=== PATIENT | female | born 1990 | race Caucasian/White ===

== ENCOUNTER 2019-09-30 10:22 | Outpatient (RCR) | payer OTHER, SELFPAY ==
[2019-09-30 10:27] VITALS: BMI 28.8
== END 2019-12-29 23:59 | disposition home or self-care (01) ==
LOC: ANHDMC 10:22
PROVIDERS: Visit Provider Obstetrics & Gynecology
DX: O24.410 Gestational diabetes mellitus in pregnancy, diet controlled (principal); Z3A.30 30 weeks gestation of pregnancy; Z71.3 Dietary counseling and surveillance; Z71.89 Other specified counseling
CPT/HCPCS: 97802; G0108

== ENCOUNTER 2019-11-12 11:24 | Outpatient (CLI) | payer OTHER, SELFPAY ==
[2019-11-12] MEDS: BETAMETHASONE SOD PHOS/ACETATE 30 MG/5 ML VIAL 12 MG IM (11:53)
--- NOTE | 2019-11-12 11:53 | PM.IMHP ---
H&P: HPI History of Present Illness Chief complaint: injection Narrative: Saritha Gilliam is a 29 year old female 2 para 1 whose last menstrual period was the 2019 EDC is 12/06/2019 presents at 36 and half weeks gestation for repeat section. has been complicated by a suspected trisomy 21 but she refused amniocentesis. She has had decreased movement and fluid has decreased and minus findings she is offered early section risks and benefits reviewed Review of Systems Review of Systems: All systems reviewed & are unremarkable except as noted in HPI and below PMFSH Social History Social History Spiritual care concerns: No Meds Home Medications and Allergies Allergies Allergy/AdvReac Type Severity Reaction Status Date / Time latex Allergy Mild RASH Verified 06/24/15 14:52 Exam Const: General: no acute distress Eyes: General: appearance normal, both eyes and all related structures Neck: Neck: supple and no JVD Thyroid: thyroid normal Resp: Effort & Inspection: normal respiratory effort Auscultation: clear to auscultation bilaterally Cardio: Rate: regular rate Rhythm: regular rhythm GI: Inspection: normal to inspection ( gravid soft uterus) : General: Yes bladder normal to palpation External Female Exam: normal external appearance Speculum Exam - Vagina: normal vaginal discharge and No vaginal bleeding Speculum Exam - Cervix: nontender Bimanual exam- vagina & uterus: bladder normal to palpation and No Cervical tenderness present OB/external & speculum: No vaginal bleeding Skin: General skin exam: no rashes or lesions noted Extrem: General: normal to inspection and no edema Psych: Mental Status: mental status grossly normal Affect: normal affect Assessment and Plan Additional Plan impression: 36 and half week with decreased growth and suspected trisomy 21 Plan: Repeat low-transverse section
== END 2019-11-12 11:25 | disposition home or self-care (01) ==
LOC: ANHOBOP 11:40
PROVIDERS: Visit Provider Obstetrics & Gynecology
DX: Z36.89 Encounter for other specified antenatal screening (principal)
CPT/HCPCS: 96372; J0702

== ENCOUNTER 2019-11-12 12:08 | Outpatient (CLI) | payer OTHER, SELFPAY ==
[2019-11-12 12:40] LABS: Hematocrit 32.5 % (37.0-47.0); Hemoglobin 10.8 g/dL (12.0-15.0); Mean Corpuscular HGB Conc 33.2 g/dl (32-36); Mean Corpuscular Hemoglobin 29.5 pg (26-34); Mean Corpuscular Volume 88.8 fl (80-100); Platelet Count Result 252 k/mm3 (150-375); Red Blood Count 3.66 M/mm3 (4.2-5.4); White Blood Count 16.9 K/mm3 (4.5-10.0)
[2019-11-13 07:09] LABS: Rapid Plasma Reagin Non-Reactive (NonReactive)
== END 2019-11-12 12:09 | disposition home or self-care (01) ==
PROVIDERS: Visit Provider Obstetrics & Gynecology
DX: Z01.818 Encounter for other preprocedural examination (principal)
CPT/HCPCS: 36415; 85027; 86592; 86850; 86900; 86901

== ENCOUNTER 2019-11-13 09:41 | Inpatient (IN) | payer OTHER, SELFPAY ==
--- NOTE | 2019-11-12 11:57 | HP_ITS ---
This report was moved to the correct visit, [id number] on 11/18/2019. Original report was signed by Dr. Bruna Philip on 11/12/2019 at 1157. H&P: HPI History of Present Illness Chief complaint: injection Narrative: Saritha Gilliam is a 29 year old female 2 para 1 whose last menstrual period was the 2019 EDC is 12/06/2019 presents at 36 and half weeks gestation for repeat section. has been complicated by a suspected trisomy 21 but she refused amniocentesis. She has had decreased movement and fluid has decreased and minus findings she is offered early section risks and benefits reviewed Review of Systems Review of Systems: All systems reviewed & are unremarkable except as noted in HPI and below PMFSH Social History Social History Spiritual care concerns: No Meds Home Medications and Allergies Allergies Allergy/AdvReac Type Severity Reaction Status Date / Time latex Allergy Mild RASH Verified 06/24/15 14:52 Exam Const: General: no acute distress Eyes: General: appearance normal, both eyes and all related structures Neck: Neck: supple and no JVD Thyroid: thyroid normal Resp: Effort & Inspection: normal respiratory effort Auscultation: clear to auscultation bilaterally Cardio: Rate: regular rate Rhythm: regular rhythm GI: Inspection: normal to inspection ( gravid soft uterus) : General: Yes bladder normal to palpation External Female Exam: normal external appearance Speculum Exam - Vagina: normal vaginal discharge and No vaginal bleeding Speculum Exam - Cervix: nontender Bimanual exam- vagina & uterus: bladder normal to palpation and No Cervical tenderness present OB/external & speculum: No vaginal bleeding Skin: General skin exam: no rashes or lesions noted Extrem: General: normal to inspection and no edema Psych: Mental Status: mental status grossly normal Affect: normal affect Assessment and Plan Additional Plan impression: 36 and half week with decreased growth and suspected trisomy 21 Plan: Repeat low-transverse section Report Initialized date/time: Brandon Hutton MD 11/12/19 / 1157 Electronically signed by: Brandon Hutton MD 11/12/[address] [facility]
[2019-11-13] VITALS (57 sets, daily range): BP systolic 86–128; BP diastolic 51–88; PULSE 60–124; RESP 16–18; TEMP 36.2–37; O2SAT 89–100; BMI 26.6
--- NOTE | 2019-11-13 04:07 | WPDHPUPDATE1 ---
History and Physical Update Update Date/Time: 11/13/19 04:07 History and Physical has been reviewed, including an updated exam of the patient. There are NO changes in the patient's condition. Risks, benefits, and alternatives have been discussed and questions answered. Patient agrees to proceed with procedure.
--- NOTE | 2019-11-13 10:31 | LDADM ---
This patient, Saritha Gilliam, was admitted to Labor/Delivery/Recovery 119 on 11/13/19 at 09:41. Plans for labor, pain management and were discussed with patient. Patient/family oriented to hospital policies and general routines including ID bracelet, bed and alarms, visiting hours, pain management, procedures, bathroom and other care routines, personal items, smoking policy, room service/diet and guest tray routines, infant security routines, and visiting hours. Patient/Family are encouraged to report perceived risks to care and to ask questions if they do not understand what they are told or what they should do. See OBIX for further documentation.
[2019-11-13] MEDS: LACTATED RINGERS 1,000 ML 125 ML IV CONT (10:41)
--- NOTE | 2019-11-13 10:41 | WPDANESEPPF ---
Anes - Initial Pre Proc Eval Procedure: Operation Date: 11/13/19 12:00 Proposed Procedures p Repeat Section - Brandon Harry MD Date/Time: 11/13/19 10:41 Surgeon: Brandon Harry MD Pre Op Diagnosis: Prior Patient Data Age: 29 Gender: F Height: 5 ft 1 in Weight: 64 kg Last Vital Signs Pulse 86 11/13/19 10:31 BP 96/73 L 11/13/19 10:31 Allergies Allergy/AdvReac Type Severity Reaction Status Date / Time latex Allergy Mild RASH Verified 06/24/15 14:52 Home Medications Medication Instructions Recorded Confirmed Type hydrocodone-acetaminophen [[place]] 1 tablet PO Q4H PRN #30 tablet 11/13/19 Rx Patient hx anesthesia problems: none Family hx anesthesia problems: none PMFSH Past Medical History Medical History (Updated 11/13/19 @ 10:41 by Brandon Mcneill MD) Gestational diabetes Social History Social History Smoking status: Never smoker Substance use: never Gender identity (if verbalized by the patient): Female Spiritual care concerns: No Anes - Eval Final PreProcedure Day of Procedure 11/13/19 10:41 Patient weight: overweight Heart: regular rate and rhythm Lungs: clear to auscultation Airway: Mallampati scale class 1 Neurological: alert and oriented Last oral intake: >/= 8 hours ASA classification: II Anesthetic plan: proceed Anesthesia type and monitoring: regional spinal and standard monitoring Informed Consent: The patient's anesthetic plan and its attendant risks and benefits were discussed with the patient/family/POA. Questions were solicited and answers provided to the satisfaction of the patient/family/POA.
[2019-11-13] MEDS: ceFAZolin 2 GM/D5W 50 ML 2 GM/50 ML BAG IVPB (11:13)
--- NOTE | 2019-11-13 12:00 | PM.PROC ---
Procedure Note - Detailed Date of procedure: 11/13/19 Pre-op diagnosis: Prior Surgeon: Brandon Harry MD Postop diagnosis: Prior section/36 and half week with known Down's baby/oligohydramnios and IUGR Procedure: Repeat low-transverse section EBL: 270cc Anesthesia: Spinal Findings: 4 lb 13 oz male with an excellent cry Complications: None Description of procedure: The patient was prepped and draped in normal sterile fashion and placed in the supine position. Under excellent spinal anesthetic the abdomen was entered in a Pfannenstiel cyst incision and progressive layers to the fascia. The fascia was incised in upward outward fashion bilaterally. The underlying muscles were sharply dissected. The parietal peritoneum mm because clamped and and by sharp dissection. This was carried superiorly then inferiorly to the dome of the bladder. A bladder blade was placed. A bladder flap was formed. A bladder blade returned. A low-transverse incision made in the head delivered in the JULY position. Anterior posterior shoulder delivered spontaneously. Cord clamped x2 and cut. passed off the table with an excellent cry. Placenta delivered intact manually. The uterus was inspected and noted to be clean of any debris. It was delivered from the abdomen. The uterus was closed with continuous running locking 0 Vicryl from lateral edge lateral edge. This was followed by an imbricating layer of imbricating 0 Vicryl from lateral edge to lateral edge. Hemostasis was assured. Ovaries and tubes appeared within normal limits. The uterus returned to the abdomen. The hysterotomy incision inspected 1 last time noted be hemostatic. The laps were removed and accounted for. The fascia was then closed with continuous running 0 Vicryl from lateral edge to midline bilaterally. The subcutaneous layer closed with Monocryl and glue. Quantitative blood loss was 270cc. All sponge, needle, instrument counts were correct. Mom and baby are doing fine at the time of dictation. There were no immediate complications
[2019-11-13] MEDS: KETOROLAC 30 MG/ML VIAL (*BKC) IV PUSH (14:05)
[2019-11-13] MEDS: OXYTOCIN 30 UNITS/NS 500 ML 30 UNITS/500 ML BAG 125 UNITS IV CONT (14:05)
--- NOTE | 2019-11-13 14:32 | PC.NURSE ---
Patient transferred to post room #283 per stretcher from labor and delivery. Support person present. Oriented to unit, room, information board, rooming in, admission packet and security measures. Patient verbalizes understanding.
[2019-11-13] MEDS: DEXTROSE 5%/0.45% SOD CHL 1,000 ML 125 ML IV CONT (20:30)
[2019-11-14 00:45] VITALS: BP 113/76; PULSE 68; RESP 16; TEMP 36.6; O2SAT 99
[2019-11-14] MEDS: KETOROLAC 30 MG/ML VIAL (*BKC) IV PUSH (00:59)
[2019-11-14 04:30] VITALS: BP 108/73; PULSE 85; RESP 16; TEMP 36.9; O2SAT 99
[2019-11-14 06:02] LABS: Basophils Percent Auto 0.1 % (0.2-1.2); Hematocrit 31.2 % (37.0-47.0); Hemoglobin 10.1 g/dL (12.0-15.0); Immature Granulocyte Percent A 1.8 % (0-0.5); Lymphocytes Absolute Auto 1.72 K/mm3 (0.9-3.2); Lymphocytes Percent Auto 10.2 % (18.3-44.2); Mean Corpuscular HGB Conc 32.4 g/dl (32-36); Mean Corpuscular Hemoglobin 29.6 pg (26-34); Mean Corpuscular Volume 91.5 fl (80-100); Mean Platelet Volume 11.7 fl (7.4-10.4); Monocytes Absolute Auto 1.2 K/mm3 (0.1-0.6); Monocytes Percent Auto 7.2 % (2.6-8.5); Neutrophils Absolute Auto 13.7 K/mm3 (1.3-6.7); Neutrophils Percent Auto 80.7 % (45.5-73.1); Nucleated Red Blood Cells Absolute Auto 0.1 K/mm3 (0.0-0.012); Nucleated Red Blood Cells Perc 0.4 % (0.0-0.2); Platelet Count Result 251 k/mm3 (150-375); Red Blood Count 3.41 M/mm3 (4.2-5.4); Red Cell Distribution Width 13.2 % (11.5-14.5); White Blood Count 16.9 K/mm3 (4.5-10.0)
--- NOTE | 2019-11-14 06:51 | PM.OBPNVD ---
OB - PN: Subj Subjective Date/time seen: 11/14/19 06:51 Patient comments: no complaints and pain well controlled baby status: doing well and nursing well OB - PN: Obj Data Labs CBC & Chem 7: 11/14/19 05:00 Labs: Laboratory Results - last 24 hr 11/14/19 05:00 WBC 16.9 H RBC 3.41 L Hgb 10.1 L Hct 31.2 L MCV 91.5 MCH 29.6 MCHC 32.4 RDW 13.2 Plt Count 251 MPV 11.7 H Immature Gran % (Auto) 1.8 H Neut % (Auto) 80.7 H Lymph % (Auto) 10.2 L Richardson % (Auto) 7.2 Eos % (Auto) 0.0 Baso % (Auto) 0.1 L Lymph # (Auto) 1.72 Richardson # (Auto) 1.2 H Eos # (Auto) 0.0 Baso # (Auto) 0.0 Abs Immat Gran (auto) 0.30 H Absolute Neuts (auto) 13.7 H Absolute Nucleated RBC 0.1 H Nucleated RBC % 0.4 H OB - PN A/P Plan day: 1 Plan: routine care Time Spent With Patient Time: Total time spent is greater than 50% in coordination of care (as documented) at patient's floor/unit and/or counseling patient: Time with patient: less than 15 minutes Review of Systems Review of Systems: All systems reviewed & are unremarkable except as noted in HPI and below Exam Const: General: no acute distress Eyes: General: appearance normal, both eyes and all related structures Neck: Neck: supple and no JVD Thyroid: thyroid normal Resp: Effort & Inspection: normal respiratory effort Auscultation: clear to auscultation bilaterally Cardio: Rate: regular rate Rhythm: regular rhythm GI: Inspection: normal to inspection and incision (cdi. fundus firm) : External Female Exam: normal external appearance (flow light) Skin: General skin exam: no rashes or lesions noted Extrem: General: normal to inspection and no edema Psych: Mental Status: mental status grossly normal Affect: normal affect
[2019-11-14] MEDS: IBUPROFEN 600 MG TABLET PO ×2 (07:59→22:37)
[2019-11-14] MEDS: DOCUSATE SODIUM 100 MG CAPSULE PO ×2 (07:59→17:36)
[2019-11-14] MEDS: MULTIVIT/MIN/PREN/FOL AC/IRON TABLET 1 TAB PO (07:59)
--- NOTE | 2019-11-14 08:00 | PC.NURSE ---
Consult with pt., mother reports has been sleepy and not eagerly feeding the last few feedings. Mother has been pumping and offering EBM as available. Mother reports some difficulties with bottle feeding. Reviewed early infants of 36 weeks and Trisomy are freq. sleepy feeders and sporadic with effective feedings. Demonstrated stimulation techniques to wake for feeding. Assisted with infant to breast. Reviewed positioning/alignment in cross cradle, holding breast in C hold and guided asymmetrical latch on. Discussed rational for each. Infant made a few weak attempts and was unable to latch. Assisted with bottle feeding. Infant has an uncoordinated suck swallow, with gagging and allowing much of formula to run out. Report to primary RN and ICP.
[2019-11-14 08:05] VITALS: BP 108/71; PULSE 68; RESP 18; TEMP 37.1; O2SAT 99
--- NOTE | 2019-11-14 11:25 | WPDANLDPN2 ---
Anes-Prog Note L&D Date/Time: 11/14/19 11:25 Comfortable throughout: section Neuraxial method: epidural Epidural/Spinal procedure site: clean & non-tender Neuro status: Neuro function grossly intact. Cardiovascular status: normal Respiratory status: normal Airway patency: baseline Mental status: baseline Post-Op hydration status: normal Vital Signs: Last Vital Signs Temp 37.1 C 11/14/19 08:05 Pulse 68 11/14/19 08:05 Resp 18 11/14/19 08:05 BP 108/71 11/14/19 08:05 Pulse Ox 99 11/14/19 08:05 I/O: Intake & Output 11/13/19 11/14/19 11/14/19 23:59 07:59 15:59 Intake Total 500 Output Total 325 2000 Balance -325 -1500 Post-procedural complaints: none Patient feedback: Patient satisfied with anesthetic care.
--- NOTE | 2019-11-14 11:26 | WPDANLDNPN2 ---
Anes-Prog Note L&D-Neuraxial Date/Time: 11/14/19 11:26 Neuraxial medications: epidural PF morphine Opiod-related complaints: none Patient feedback: Patient satisfied with post-operative pain management.
--- NOTE | 2019-11-14 15:30 | PC.NURSE ---
Reviewed instructions given on breast pump care and usage, pumping schedule, nipple care, and collection and storage of breast milk. Encouraged breast massage and manual expression to stimulate supply. Assessed patient for correct flange size, placement and draw. Patient verbalizes and demonstrates understanding of instructions.
[2019-11-14 19:00] VITALS: BP 117/74; PULSE 100; RESP 16; TEMP 37; O2SAT 100
--- NOTE | 2019-11-15 06:55 | P.DS_ITS ---
DS: Diagnosis Admitting Diagnosis Admitting Diagnosis: 36 weeks/prev section/oligo/iugr/downs DS: Summary Time Spent with Patient Time attestation: Total time spent providing and/or coordinating discharge services: Exam Const: General: no acute distress Eyes: General: appearance normal, both eyes and all related structures Neck: Neck: supple and no JVD Thyroid: thyroid normal Resp: Effort & Inspection: normal respiratory effort Auscultation: clear to auscultation bilaterally Cardio: Rate: regular rate Rhythm: regular rhythm GI: Inspection: non-distended GI Palp: Yes Soft to palpation, No Tenderness to palpation present (GI) and No Guarding due to palpation present (GI) Auscultation: normal bowel sounds : General: Yes bladder normal to palpation External Female Exam: normal external appearance Speculum Exam - Vagina: normal vaginal discharge and No vaginal bleeding Speculum Exam - Cervix: nontender Bimanual exam- vagina & uterus: bladder normal to palpation and No Cervical tenderness present OB/external & speculum: No vaginal bleeding Skin: General skin exam: no rashes or lesions noted Extrem: General: normal to inspection and no edema Psych: Mental Status: mental status grossly normal Affect: normal affect DS: Data Data Completed and Pending Pending studies at discharge: Pending at discharge 11/13/19 11:35 Surgical [PTH] Routine Discharge Plan Discharge Attending physician on discharge: Brandon Harry Discharging Clinician: Brandon Harry Patient Disposition: Home, Self-Care Activity: may shower, no straining, may drive after 2 weeks and pelvic rest Diet: heart healthy Wound Care Instructions: follow printed instructions and incision open to air Follow-up/Referrals: Brandon Harry MD [Physician] - Discharge Medications: New hydrocodone-acetaminophen [[place]] 5-325 mg tablet 1 tablet PO Q4H PRN (Reason: pain) Qty: 30 RF: 0 Continued Daily [id number] mg-mcg-mg Combo Pack 1 pkg PO DAILY RF: 0 Date of admission: 11/13/19 09:41 Primary Care Provider: PHYSICIAN NOT ON STAFF,NONSTAFF Admitting Provider: Brandon Harry Attending physician on admission: Brandon Harry
--- NOTE | 2019-11-15 06:57 | PM.OBPNVD ---
OB - PN: Subj Subjective Date/time seen: 11/15/19 06:57 Patient comments: no complaints and pain well controlled OB - PN: Obj Data Labs CBC & Chem 7: 11/14/19 05:00 OB - PN A/P Plan day: 2 Plan: routine care, discharge home and follow up 6 weeks (4 weeks) Time Spent With Patient Time: Total time spent is greater than 50% in coordination of care (as documented) at patient's floor/unit and/or counseling patient: Time with patient: less than 15 minutes Review of Systems Review of Systems: All systems reviewed & are unremarkable except as noted in HPI and below Exam Const: General: no acute distress Eyes: General: appearance normal, both eyes and all related structures Neck: Neck: supple and no JVD Thyroid: thyroid normal Resp: Effort & Inspection: normal respiratory effort Auscultation: clear to auscultation bilaterally Cardio: Rate: regular rate Rhythm: regular rhythm GI: Inspection: normal to inspection and incision (cdi) Percussion: Yes normal to percussion : General: Yes bladder normal to palpation External Female Exam: normal external appearance Speculum Exam - Vagina: normal vaginal discharge and No vaginal bleeding Speculum Exam - Cervix: nontender Bimanual exam- vagina & uterus: bladder normal to palpation and No Cervical tenderness present OB/external & speculum: No vaginal bleeding Skin: General skin exam: no rashes or lesions noted Extrem: General: normal to inspection and no edema Psych: Mental Status: mental status grossly normal Affect: normal affect
[2019-11-15 07:45] VITALS: BP 125/86; PULSE 80; RESP 18; TEMP 37.1
[2019-11-15] MEDS: DOCUSATE SODIUM 100 MG CAPSULE PO (08:17)
[2019-11-15] MEDS: MULTIVIT/MIN/PREN/FOL AC/IRON TABLET 1 TAB PO (08:17)
[2019-11-15] MEDS: IBUPROFEN 600 MG TABLET PO (08:17)
== END 2019-11-15 08:42 | disposition home or self-care (01) | DRG 787 ==
LOC: ANHLDR 09:47 → ANHOB2 15:11
PROVIDERS: Admitting Provider Obstetrics & Gynecology; Visit Provider Obstetrics & Gynecology
PROC: 10D00Z1 Extraction of Products of Conception, Low, Open Approach (ICD-10-PCS; CPT 59514; principal; 2019-11-13 12:00)
DX: O34.211 Maternal care for low transverse scar from previous cesarean delivery (principal); O41.03X0 Oligohydramnios, third trimester, not applicable or unspecified; Z37.0 Single live birth; Z3A.36 36 weeks gestation of pregnancy; O36.8130 Decreased fetal movements, third trimester, not applicable or unspecified; O35.1XX0 Maternal care for (suspected) chromosomal abnormality in fetus, not applicable or unspecified
CPT/HCPCS: 36415; 81229; 85025; 88307; A9270; J0131; J0690; J1200; J1885; J2274; J2405; J2590; J7120

== ENCOUNTER 2019-11-13 09:41 | Outpatient (RCR) | payer OTHER, SELFPAY ==
[2019-10-17 11:34] VITALS: BP 110/73; PULSE 96
[2019-10-24 10:14] VITALS: BP 98/62; PULSE 116
[2019-10-31 09:53] VITALS: BP 98/62; PULSE 114
[2019-11-07 10:15] VITALS: BP 102/62; PULSE 106
[2019-11-11] MEDS: BETAMETHASONE SOD PHOS/ACETATE 30 MG/5 ML VIAL 12 MG IM (11:39)
--- NOTE | 2019-11-11 12:05 | PM.OBTRLD ---
OB - Triage/Final Diagnosis Visit Information Date of evaluation: 11/11/19 Reason for evaluation: decreased movement and other (bradycardia) Comments/Additional reasons for admission: FHT noted to be bradycardic on in office US today. BPP score was 4 in the office. pt sent to triage for evaluation, NST and steroids. FHT were noted to be in the 140s and reactive. BPP score thus improved. Plan for repeat BPP/NST tomorrow and second round of BTMS. pt given precautions on kick counts. Evaluation Variability: Moderate (11-25) monitor accelerations: Present monitor decelerations: Variable
[2019-11-11 17:42] VITALS: BP 100/66; PULSE 106
== END 2019-11-14 07:33 | disposition home or self-care (01) ==
LOC: ANHOBOP 09:41
PROVIDERS: Visit Provider Obstetrics & Gynecology
DX: O24.419 Gestational diabetes mellitus in pregnancy, unspecified control (principal); Z3A.32 32 weeks gestation of pregnancy; Z3A.33 33 weeks gestation of pregnancy; Z3A.34 34 weeks gestation of pregnancy; Z3A.35 35 weeks gestation of pregnancy; Z3A.36 36 weeks gestation of pregnancy
CPT/HCPCS: 59025; 96372; J0702

== ENCOUNTER 2025-03-19 11:23 | Outpatient (CLI) | payer OTHER, SELFPAY ==
[2025-03-19 12:29] LABS: Hematocrit 41.0 % (37.0-47.0); Hemoglobin 14.0 g/dL (12.0-15.0); Immature Granulocyte Percent A 0.4 % (0-0.5); Lymphocytes Absolute Auto 2.22 K/mm3 (0.9-3.2); Mean Corpuscular HGB Conc 34.1 g/dl (32-36); Mean Corpuscular Hemoglobin 31.3 pg (26-34); Mean Corpuscular Volume 91.7 fl (80-100); Nucleated Red Blood Cells Absolute Auto 0.000 K/mm3 (0.0-0.012); Nucleated Red Blood Cells Perc 0.0 % (0.0-0.2); Platelet Count Result 303 k/mm3 (150-375); Red Blood Count 4.47 M/mm3 (4.2-5.4); White Blood Count 7.8 K/mm3 (4.5-10.0)
== END 2025-03-19 11:24 | disposition home or self-care (01) ==
LOC: ANHSURGERY 11:27
PROVIDERS: PCP Nurse Practitioner Family; Visit Provider Obstetrics & Gynecology
DX: Z01.818 Encounter for other preprocedural examination (principal); D25.9 Leiomyoma of uterus, unspecified
CPT/HCPCS: 36415; 85025; 86850; 86900; 86901

== ENCOUNTER 2025-03-20 02:52 | Day surgery (SDC) | payer OTHER, SELFPAY ==
--- NOTE | 2025-03-17 03:35 | PM.IMHP ---
H&P: HPI History of Present Illness Date/Time: 03/17/25 03:35 Chief Complaint: Uterine fibroids Narrative: is a 34-year-old female with the symptomatic uterine fibroids. She is admitted for robotic hysterectomy bilateral salpingectomy. Risks and benefits reviewed exclusive of , aspiration pneumonia, bleeding, transfusion, perforation injury to bowel, bladder, ureters, her wrist internal organs with need for open laparotomy. She received the [employer]CO[employer] handout entitled hysterectomy as well as de Delia handout. She had all questions answered. She asked to proceed. Review of Systems Review of Systems: All systems reviewed & are unremarkable except as noted in HPI and below PMFSH Past Medical History Medical History Gestational diabetes Social History Social History Smoking status: Never smoker Substance use: never Gender identity (if verbalized by the patient): Female Spiritual care concerns: No Meds Home Medications and Allergies Home Medications ?Medication ?Instructions ?Recorded ?Confirmed ?Type hydrocodone 5 mg-acetaminophen 325 1 tablet PO Q4H PRN pain #30 tabs 11/13/19 Rx mg tablet ([facility]) vits 75-iron 28 mg-folic 1 pkg PO DAILY 11/13/19 11/13/19 History acid 800 mcg-omega3 440 mg oral pack (Daily ) Allergies Allergy/AdvReac Type Severity Reaction Status Date / Time adhesive tape AdvReac Redness of Verified 11/13/19 10:55 Skin Exam Const: General: cooperative, healthy appearing and comfortable Nutritional Appearance: average body habitus Orientation/consciousness: oriented to person, oriented to place and oriented to time Resp: Effort & Inspection: normal respiratory effort Cardio: Rate: regular rate Rhythm: regular rhythm Heart sounds: S1 normal heart sound present and S2 normal heart sound present GI: Inspection: normal to inspection : External Female Exam: normal external appearance Speculum Exam - Vagina: normal appearance of the vagina Speculum Exam - Cervix: normal appearance of the cervix Bimanual exam- vagina & uterus: enlarged and Uterine tenderness Bimanual Exam- Adnexa, other: normal adnexae Assessment and Plan Assessment and plan (1) Uterine fibroid: Code(s): D25.9 - Leiomyoma of uterus, unspecified Status: Acute Plan Proceed with robotic total vaginal hysterectomy and bilateral salpingectomy
[2025-03-17 13:25] VITALS: BMI 31.0
--- NOTE | 2025-03-17 13:34 | PC.NURSE ---
Report to the Outpatient Waiting Room, entrance under the green pavilion located off [facility], at time _1130_ on date _[id number]_. Planned Procedure Time: _130pm_.? Time changes happen often and if your time is changed the preop area will call you the afternoon before. - You and your visitor will be asked to self-screen and do not enter if you have any COVID symptoms. Please call surgeon if you need to reschedule. - A mask is optional within the hospital at this time. Patients may have clear liquids (water, carbonated beverages, clear teas, apple juice) until 3 hours prior to surgery with a maximum of 20 ounces. - No food from midnight until time of surgery and no smoking, or chewing tobacco (or any form of nicotine). No chewing gum, candy or mints. Take only the following medications with a SIP of water on the morning of surgery: __Auvelity___ DO NOT STOP ANY OF YOUR OTHER PRESCRIPTION MEDICATIONS PRIOR TO SURGERY EXCEPT THE FOLLOWING Hold all vitamins and supplements for 3 days per anesthesiologist. Stop now Medications to discontinue per physician Date to take last dose Please no make-up, nail malay, hairspray, perfume, deodorant, or body powder the day of surgery.? No jewelry (including any body piercings) or valuables the day of surgery, leave them at home.? Please take a shower or bath the night before, or the morning of, surgery with an antibacterial soap.? Wear comfortable, loose fitting clothing.? - Jewelry must be removed prior to entering the operating room.? Rings and piercings that are not removed may be cut off. - The hospital will not accept responsibility for valuables.? - Please leave all valuables, including medications, at home the day of surgery. If you are going home after surgery, a licensed tram driver must drive you home.? - NO public transportation without another adult if you receive anesthesia. - We recommend that an adult stay with you for 24 hours following discharge. - We also recommend that you do not drive, make important decision, drink alcoholic beverages, or take any drugs that were not prescribed by your health care provider for at least 24 hours after your discharge time. Follow any additional instructions given to you from your surgeon. Telephone instructions given to __Cindi___and asked if any additional questions and then verbalized understanding. Patient advised to call surgeon office or pre surgery nurse liaison [phone] if any additional questions.
[2025-03-20] VITALS (12 sets, daily range): BP systolic 79–124; BP diastolic 44–80; PULSE 80–105; RESP 12–20; TEMP 36.5–36.9; O2SAT 92–100
--- NOTE | ~2025-03-20 | XR_ITS ---
EXAMINATION: XR chest 1V portable 03/20/2025 15:26 INDICATION: Shortness of breath PROCEDURE: AP portable chest COMPARISON: No prior studies for comparison. FINDINGS: The lungs are clear. The cardiomediastinal silhouette is within normal limits. There are no pleural effusions. There is no pneumothorax suspected. IMPRESSION: 1: NO ACUTE CARDIOPULMONARY DISEASE. Reviewed, dictated and finalized at location O.
--- OUTSIDE RECORDS SUMMARY | 2025-03-20 02:55 | XMS_ITS | Encounter Summary ---
Author Organization [facility] Address [address] [place] [id number] Care Team Providers Care Charge Authorizer Name Role Phone Estella Dockery NP Primary Care Provider [phone] Lindsay Wan MD Unavailable [phone] Encounter Details Date Type Department Care Team (Late st Contact Info) Description 06/26/2023 [employer] Message Enc [facility] - [place] [address] [place] [address] Bebeto Ogden MD [address] [place] [address] Right wrist Social History Tobacco Use Types Packs/Day Years Used Date Smoking Tobacco: Never Passive Smoke Exposure: Never Smokeless Tobacco: Never Comments:Never Smoked Alcohol Use Standard Drinks/Week Comments Yes 0 (1 standard drink = 0.6 oz pur e alcohol) socially Comments No Sex and Gender Information Value Date Recorded Sex Assigned at Female 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 Legal Sex Female 7:22 PM CDT Gender Identity Female 07/22/2024 1:16 PM 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 Sexual Orientation Not on file 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 Not on file Not on file Not on file documented as of this encounter Plan of Treatment Not on file documented as of this encounter Visit Diagnoses Not on filedocumented in this encounter Additional Health Concerns Assessment Noted Time PHQ-9 Depression Total Score: 10 023 1:51 PM 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
--- OUTSIDE RECORDS SUMMARY | 2025-03-20 02:55 | XMS_ITS | Encounter Summary ---
Author Organization [facility] Address [address] [place] [address] Care Team Providers Care Computer Repair Technician Name Role Phone Estella Dockery NP Primary Care Provider + Lindsay Wan MD Unavailable [phone] Encounter Details Date Type Department Care Team (Late st Contact Info) Description 07/19/2023 Zeuss Message Enc [facility] Medical Group Family and Sports Medicine - [place] [address] [place] [address] Estella Dockery NP [address] [place] [address] Ideas Social History Tobacco Use Types Packs/Day Years Used Date Smoking Tobacco: Never Passive Smoke Exposure: Never Smokeless Tobacco: Never Comments:Never Smoked Alcohol Use Standard Drinks/Week Comments Yes 0 (1 standard drink = 0.6 oz pur e alcohol) socially Comments No Sex and Gender Information Value Date Recorded Sex Assigned at Female 08/05/2024 11:43 AM FIELD OPERATIONS MANAGER Legal Sex Female 7:22 PM CDT Gender Identity Female 07/22/2024 1:16 PM FIELD OPERATIONS MANAGER Sexual Orientation Not on file 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 Not on file Not on file documented as of this encounter Progress Notes * Estella Dockery NP - 07/20/2023 10:37 AM CST OV D OPERATIONS MANAGER documented in this encounter Plan of Treatment Not on file documented as of this encounter Visit Diagnoses Not on filedocumented in this encounter Additional Health Concerns Assessment Noted Time PHQ-9 Depression Total Score: 10 023 1:51 PM FIELD OPERATIONS MANAGER documented as of this encounter Care Teams Computer Repair Technician Relationship Specialty Start Date End Date Estella Dockery JOB SERVICE CONSULTANT [address] [place], [place] [phone] PCP - General Nurse Practitioner Family 09/17/20 Lindsay Wan MD Three [facility] [address] [place] [address] Consulting Physician ANESTHESIOLOGY PAIN MEDICINE 08/01/23 documented as of this encounter
--- OUTSIDE RECORDS SUMMARY | 2025-03-20 02:55 | XMS_ITS | Encounter Summary ---
Author Organization [facility] Address [address] [place] [address] Care Team Providers Care Mold Changer Name Role Phone Estella Dockery NP Primary Care Provider [phone] Lindsay Wan MD Unavailable [phone] Encounter Details Date Type Department Care Team (Late st Contact Info) Description 04/16/[address]VPN [address] [facility] [place] [address] [phone] Azalea Lock NP 3 [facility] [address] [place] [address] [phone] (Work) Nerve ablation Social History Tobacco Use Types Packs/Day Years Used Date Smoking Tobacco: Never Smokeless Tobacco: Never Alcohol Use Standard Drinks/Week Comments Yes 0 (1 standard drink = 0.6 oz pur e alcohol) socially Comments No Sex and Gender Information Value Date Recorded Sex Assigned at Female 08/05/2024 11:43 AM OPERATING ROOM SPECIALIST Legal Sex Female 7:22 PM CDT Gender Identity Female 07/22/2024 1:16 PM OPERATING ROOM SPECIALIST Sexual Orientation Not on file 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 Not on file Not on file documented as of this encounter Plan of Treatment Not on file documented as of this encounter Visit Diagnoses Not on filedocumented in this encounter Additional Health Concerns Assessment Noted Time PHQ-9 Depression Total Score: 10 023 1:51 PM OPERATING ROOM SPECIALIST documented as of this encounter Care Teams Mold Changer Relationship Specialty Start Date End Date Estella Dockery NP [address] [place] [address] PCP - General Nurse Practitioner Family 09/17/20 Lindsay Wan MD Three [facility] [address] [place], [place] [phone] Consulting Physician ANESTHESIOLOGY PAIN MEDICINE 08/01/23 documented as of this encounter
--- OUTSIDE RECORDS SUMMARY | 2025-03-20 02:55 | XMS_ITS | Encounter Summary ---
Author Organization [facility] Address [address] [place] [address] Care Team Providers Care Floor Mechanic Name Role Phone Estella Dockery NP Primary Care Provider [phone] Lindsay Wan MD Unavailable [phone] Reason for Referral * Surgical (Routine) - Closed Specialty Diagnoses / Procedures Referred By Contac t Referred To Contact Diagnoses Lumbar facet arthropathy Procedures Case request operating room: RADIOFREQUENCY LUMBAR [id number] Lindsay Wan MD Three [facility] [address] [place] [address] Phone: tel: fax: Referral ID Status Reason Start Date Expiration Date Visits Re quested Visits Authorized [id number] Closed 04/17/2023 04/17/2024 1 1 Encounter Details Date Type Department Care Team (Late st Contact Info) Description 04/17/2023 Prep for Procedure [facility] Interventional [facility] Management Center [address] [place], [place] [phone] [id number] Lindsay Wan MD Three [facility] [address] [place] [phone] Social History Tobacco Use Types Packs/Day Years Used Date Smoking Tobacco: Never Smokeless Tobacco: Never Alcohol Use Standard Drinks/Week Comments Yes 0 (1 standard drink = 0.6 oz pur e alcohol) socially Comments No Sex and Gender Information Value Date Recorded Sex Assigned at Female 08/05/2024 11:43 AM HORIZONTAL DRILL OPERATOR Legal Sex Female 7:22 PM CDT Gender Identity Female 07/22/2024 1:16 PM HORIZONTAL DRILL OPERATOR Sexual Orientation Not on file 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 Not on file Not on file documented as of this encounter Plan of Treatment Scheduled Orders Name Type Priority Associated Diagnoses Orde r Schedule Case request operating room: RADIOFREQUENCY LUMBAR [id number] Case Request Routine Lumbar facet arthropathy Once for 1 Occurrences starting 04/17/2023 until 04/17/2023 documented as of this encounter Visit Diagnoses Diagnosis Lumbar facet arthropathy- Primary Lumbosacral spondylosis without myelopathy documented in this encounter Additional Health Concerns Assessment Noted Time PHQ-9 Depression Total Score: 023 1:51 PM HORIZONTAL DRILL OPERATOR documented as of this encounter Care Teams Floor Mechanic Relationship Specialty Start Date End Date Estella Dockery NP [address] [place] [phone] PCP - General Nurse Practitioner Family 09/17/20 Lindsay Wan MD Three [facility] [address] [place] [address] Consulting Physician ANESTHESIOLOGY PAIN MEDICINE 08/01/23 documented as of this encounter
--- OUTSIDE RECORDS SUMMARY | 2025-03-20 02:56 | XMS_ITS | Encounter Summary ---
Author Organization [facility] Address [address] [place] [address] Care Team Providers Care Steelworker Name Role Phone Estella Dockery DIGESTER OPERATOR Primary Care Provider + Lindsay Wan MD Unavailable [phone] Encounter Details Date Type Department Care Team (Late st Contact Info) Description 02/12/2023 Collected Inc. Message Enc [facility] Medical Group Family and Sports Medicine - [place] [address] [facility] [place] [address] Estella Dockery, DIGESTER OPERATOR [address] [place] [address] Prescription Social History Tobacco Use Types Packs/Day Years Used Date Smoking Tobacco: Never Smokeless Tobacco: Never Alcohol Use Standard Drinks/Week Comments Yes 0 (1 standard drink = 0.6 oz pur e alcohol) socially Comments No Sex and Gender Information Value Date Recorded Sex Assigned at Female 08/05/2024 11:43 AM MIDDLE SCHOOL READING TEACHER Legal Sex Female 7:22 PM CDT Gender Identity Female 07/22/2024 1:16 PM MIDDLE SCHOOL READING TEACHER Sexual Orientation Not on file 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 Not on file Not on file documented as of this encounter Plan of Treatment Not on file documented as of this encounter Visit Diagnoses Not on filedocumented in this encounter Additional Health Concerns Assessment Noted Time PHQ-9 Depression Total Score: 10 023 1:51 PM MIDDLE SCHOOL READING TEACHER documented as of this encounter Care Teams Steelworker Relationship Specialty Start Date End Date Estella Dockery, DIGESTER OPERATOR [address] [place] [id number] PCP - General Nurse Practitioner Family 09/17/20 Lindsay Wan MD [address] [place] [address] Consulting Physician ANESTHESIOLOGY PAIN MEDICINE 08/01/23 documented as of this encounter
--- OUTSIDE RECORDS SUMMARY | 2025-03-20 02:56 | XMS_ITS | Clinical Summary ---
Author Organization [facility] Address [address] [place] [address] Care Team Providers Care Internet Sourcer Name Role Phone No, Physician Primary Care Provider [phone] Allergies Active Allergy Reactions Criticality Noted Date Comments Adhesive Rash Medium 04/21/2024 Medications HYDROcodone-acet aminophen (NORCO) 5-325 mg per tabletIndication s:Pain Take 1 tablet by mouth every 6 (six) hours as needed for pain 20 tablet 04/21/2024 Active Social History Tobacco Use Types Packs/Day Years Used Date Smoking Tobacco: Never Assessed Personal Safety Answer Date Recorded Have you ever been in or are you currently in a harmful physical or emotional relationship or is someone making you feel afraid or unsafe? Denies 04/21/2024 Comments No Sex and Gender Information Value Date Recorded Sex Assigned at Not on file Legal Sex Female 5:22 AM WATER CONSERVATION SPECIALIST Gender Identity Not on file Sexual Orientation Not on file Obstetrics History Last Filed Vital Signs Vital Sign Reading Time Taken Comments Blood Pressure 132/88 04/21/2024 1:35 AM CDT Pulse 90 04/21/2024 1:35 AM CDT Temperature 36.9 C (98.5 F) 04/21/2024 12:51 AM CDT Respiratory Rate 20 04/21/2024 1:35 AM CDT Oxygen Saturation 100% 04/21/2024 1:35 AM CDT Inhaled Oxygen Concentration - - Weight 70.2 kg (154 lb 12.2 oz) 024 12:51 AM CDT Height 170.2 cm (5' 7) 04/21/2024 12:5 1 AM CDT Body Mass Index 24.24 04/21/2024 12:51 AM CDT Plan of Treatment Health Maintenance Due Date Last Done Comments Cervical Cancer Screening 1988 Depression Screening 1988 Hepatitis C Screening 1988 DTaP/Tdap/Td Vaccine (6 - Tdap) 1999 01/01/1996, 01/15/1990, 01/22/1989, Additional history exists Varicella Vaccines (1 of 2 - 13+ 2-dose series) 2001 Regular Well Visit/Exam 18-64 2006 HPV Vaccines (1 - 3-dose SCDM series) 2015 Influenza Vaccine (#1) 2025 Hepatitis B Screening Completed 03/03/2002 , 10/16/2001, 08/28/2001 Pneumococcal vaccine <65 Aged Out No longer eligible based on patient's age to complete this topic Insurance [facility] Care Teams Internet Sourcer Relationship Specialty Start Date End Date No, Physician PCP - General 04/21/24
--- OUTSIDE RECORDS SUMMARY | 2025-03-20 02:56 | XMS_ITS | Encounter Summary ---
Author Organization [facility] Address [address] [place] [address] Care Team Providers Care Vb Net Developer Name Role Phone Estella Dockery NP Primary Care Provider [phone] Lindsay Wan MD Unavailable [phone] Encounter Details Date Type Department Care Team (Late st Contact Info) Description 09/23/2024 Game Blisterst Message Enc [facility] Interventional Pain Management Center [address] [place], [place] [phone] [id number] Lindsay Wan MD Three [facility] [address] [place] [address] Nerve block question Social History Tobacco Use Types Packs/Day Years Used Date Smoking Tobacco: Never Passive Smoke Exposure: Never Smokeless Tobacco: Never Comments:Never Smoked Alcohol Use Standard Drinks/Week Comments Yes 0 (1 standard drink = 0.6 oz pur e alcohol) socially PHQ-2 Answer Date Recorded Patient Health Questionnaire-2 Score 2 07/24/2023 Comments No Sex and Gender Information Value Date Recorded Sex Assigned at Female 08/05/2024 11:43 AM PERSONNEL ARBITRATOR Legal Sex Female 7:22 PM CDT Gender Identity Female 07/22/2024 1:16 PM PERSONNEL ARBITRATOR Sexual Orientation Not on file 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 Not on file Not on file documented as of this encounter Plan of Treatment Not on file documented as of this encounter Visit Diagnoses Not on filedocumented in this encounter Additional Health Concerns Assessment Noted Time PHQ-9 Depression Total Score: 10 024 9:50 AM PERSONNEL ARBITRATOR documented as of this encounter Care Teams Vb Net Developer Relationship Specialty Start Date End Date Estella Dockery NP [address] [place] [address] PCP - General Nurse Practitioner Family 09/17/20 Lindsay Wan MD Three [facility] [address] [place], [place] [phone] Consulting Physician ANESTHESIOLOGY PAIN MEDICINE 08/01/23 documented as of this encounter
--- OUTSIDE RECORDS SUMMARY | 2025-03-20 02:56 | XMS_ITS | Encounter Summary ---
Author Organization [facility] Address [address] [place] [address] Care Team Providers Care Production Scheduler Name Role Phone Estella Dockery NP Primary Care Provider [phone] Lindsay Wan MD Unavailable [phone] Encounter Details Date Type Department Care Team (Late st Contact Info) Description 09/24/2024 StubHub Message [facility] Interventional [place] [address] [id number] [employer], [facility] Provider STEROID INJECTION Social History Tobacco Use Types Packs/Day Years [...] Sex Assigned at Female 08/05/2024 11:43 AM CONSUMER ANALYST Legal Sex Female 7:22 PM CDT Gender Identity Female 07/22/2024 1:16 PM CONSUMER ANALYST Sexual Orientation Not on file 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 Not on file Not on file documented as of this encounter Plan of Treatment Not on file documented as of this encounter Visit Diagnoses Not on filedocumented in this encounter Additional Health Concerns Assessment Noted Time PHQ-9 Depression Total Score: 10 024 9:50 AM CONSUMER ANALYST documented as of this encounter Care Teams Production Scheduler Relationship Specialty Start Date End Date Estella Dockery, TRANSPORTATION SECURITY OFFICER [address] [place] [address] PCP - General Nurse Practitioner Family 09/17/20 Lindsay Wna MD [address] [place] [address] Consulting Physician ANESTHESIOLOGY PAIN MEDICINE 08/01/23 documented as of this encounter
--- OUTSIDE RECORDS SUMMARY | 2025-03-20 02:56 | XMS_ITS | Encounter Summary ---
Author Organization [facility] Address [address] [place] [address] Care Team Providers Care Chief Of Party Name Role Phone Estella Docekry HOT SAW HELPER Primary Care Provider [phone] Lindsay Wan MD Unavailable [phone] Encounter Details Date Type Department Care Team (Late st Contact Info) Description 01/03/2023 EverPresenthart Message [facility] Medical Group - [address] [phone] P[employer]stream, [facility] Provider Air Quality Message Social History Tobacco Use Types Packs/Day Years Used Date Smoking Tobacco: Never Smokeless Tobacco: Never Alcohol Use Standard Drinks/Week Comments Yes 0 (1 standard drink = 0.6 oz pur e alcohol) socially Comments No Sex and Gender Information Value Date Recorded Sex Assigned at Female 08/05/2024 11:43 AM FINANCE ADMIN Legal Sex Female 7:22 PM CDT Gender Identity Female 07/22/2024 1:16 PM FINANCE ADMIN Sexual Orientation Not on file 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 No / Unsure 12/06/2022 7:26 AM CDT documented as of this encounter Plan of Treatment Not on file documented as of this encounter Visit Diagnoses Not on filedocumented in this encounter Additional Health Concerns Assessment Noted Time PHQ-9 Depression Total Score: 10 023 1:51 PM FINANCE ADMIN documented as of this encounter Care Teams Chief Of Party Relationship Specialty Start Date End Date Estella Dockery NP [address] [place] [address] PCP - General Nurse Practitioner Family 09/17/20 Lindsay Wan MD [address] [place], [place] [phone] Consulting Physician ANESTHESIOLOGY PAIN MEDICINE 08/01/23 documented as of this encounter
--- OUTSIDE RECORDS SUMMARY | 2025-03-20 02:56 | XMS_ITS | Encounter Summary ---
Author Organization [facility] Address [address] [place] [address] Care Team Providers Care Transit Planner Name Role Phone Estella Dockery NP Primary Care Provider Lindsay Wan MD Unavailable [phone] Encounter Details Date Type Department Care Team (Late st Contact Info) Description 09/25/2024 Everspring Message [facility] Interventional [place] [address] [id number] [employer], [facility] Provider REFERRAL Social History Tobacco Use Types Packs/Day Years [...] Sex Assigned at Female 08/05/2024 11:43 AM TABLET REPAIR Legal Sex Female 7:22 PM CDT Gender Identity Female 07/22/2024 1:16 PM TABLET REPAIR Sexual Orientation Not on file 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 file Not on file documented as of this encounter Plan of Treatment Not on file documented as of this encounter Visit Diagnoses Not on filedocumented in this encounter Additional Health Concerns Assessment Noted Time PHQ-9 Depression Total Score: 10 024 9:50 AM TABLET REPAIR documented as of this encounter Care Teams Transit Planner Relationship Specialty Start Date End Date Estella Dockery, ADAPTIVE PHYSICAL EDUCATOR [address] [place] [address] PCP - General Nurse Practitioner Family 09/17/20 Lindsay Wan MD [address] [place] [address] Consulting Physician ANESTHESIOLOGY PAIN MEDICINE 08/01/23 documented as of this encounter
--- OUTSIDE RECORDS SUMMARY | 2025-03-20 02:56 | XMS_ITS | Encounter Summary ---
Author Organization [facility] Address [address] [place] [address] Care Team Providers Care Psychological Operations Name Role Phone Estella Dockery NP Primary Care Provider [phone] Lindsay Wan MD Unavailable [phone] Encounter Details Date Type Department Care Team (Late st Contact Info) Description 05/28/2024 SiftyNett Message Enc [facility] Interventional Pain Management Center [address] [place], [place] [phone] [id number] Lindsay Wan MD Three [facility] [address] [place] [address] Pain Social History Tobacco Use Types Packs/Day Years [...] Sex Assigned at Female 08/05/2024 11:43 AM FUEL CELL ENGINEER Legal Sex Female 7:22 PM CDT Gender Identity Female 07/22/2024 1:16 PM FUEL CELL ENGINEER Sexual Orientation Not on file 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 Not on file documented as of this encounter Plan of Treatment Not on file documented as of this encounter Visit Diagnoses Not on filedocumented in this encounter Additional Health Concerns Assessment Noted Time PHQ-9 Depression Total Score: 10 024 9:50 AM FUEL CELL ENGINEER documented as of this encounter Care Teams Psychological Operations Relationship Specialty Start Date End Date Estella Dockery NP [address] [place] [phone] PCP - General Nurse Practitioner Family 09/17/20 Lindsay Wan MD Three [facility] Suite [facility] [place], [place] [phone] Consulting Physician ANESTHESIOLOGY PAIN MEDICINE 08/01/23 documented as of this encounter
--- OUTSIDE RECORDS SUMMARY | 2025-03-20 02:56 | XMS_ITS | Encounter Summary ---
Author Organization [facility] Address [address] [place] [address] Care Team Providers Care Journeyman Patternmaker Name Role Phone Estella Dockery SNUFF MAKER Primary Care Provider + Lindsay Wan MD Unavailable [phone] Encounter Details Date Type Department Care Team (Late st Contact Info) Description 05/11/2022 Search123 Message Enc [facility] [place] Medical Group Family and Sports Medicine - [place] [address] [place] [address] Estella Dockery, SNUFF MAKER [address] [place] [address] Tattoo Social History Tobacco Use Types Packs/Day Years Used Date Smoking Tobacco: Never Smokeless Tobacco: Never Alcohol Use Standard Drinks/Week Comments Not Currently 0 (1 standard drink = 0.6 oz pur e alcohol) socially Comments No Sex and Gender Information Value Date Recorded Sex Assigned at Female 08/05/2024 11:43 AM FUNERAL HOME GENERAL MANAGER Legal Sex Female 7:22 PM CDT Gender Identity Female 07/22/2024 1:16 PM FUNERAL HOME GENERAL MANAGER Sexual Orientation Not on file COVID-19 Exposure Response Date Recorded In the last 10 days, have yo u been in contact with someone who was confirmed or suspected to have Coronavirus/COVID-19? No / Unsure 04/27/2022 8:47 AM CDT documented as of this encounter Plan of Treatment Not on file documented as of this encounter Visit Diagnoses Not on filedocumented in this encounter Additional Health Concerns Assessment Noted Time PHQ-9 Depression Total Score: 5 04/27/20 22 9:18 AM CDT documented as of this encounter Care Teams Journeyman Patternmaker Relationship Specialty Start Date End Date Estella Dockery NP [address] [place] [phone] PCP - General Nurse Practitioner Family 09/17/20 Lindsay Wan MD Three [facility] [address] [place] [address] Consulting Physician ANESTHESIOLOGY PAIN MEDICINE 08/01/23 documented as of this encounter
--- OUTSIDE RECORDS SUMMARY | 2025-03-20 02:56 | XMS_ITS | Encounter Summary ---
Author Organization [facility] Address [address] [place] [address] Care Team Providers Care Environmental Services Coordinator Name Role Phone Estella Dockery VEST BASTER Primary Care Provider [phone] Lindsay Wan MD Unavailable [phone] Encounter Details Date Type Department Care Team (Late st Contact Info) Description 07/25/2022 MobileIron Message Enc [facility] Medical Group Family and Sports Medicine - [place] [address] [place] [address] Estella Dockery, VEST BASTER [address] [place] [address] Question regarding MRI LUMB SPINE WO CON Social History Tobacco Use Types Packs/Day Years Used Date Smoking Tobacco: Never Smokeless Tobacco: Never Alcohol Use Standard Drinks/Week Comments Yes 0 (1 standard drink = 0.6 oz pur e alcohol) socially Comments No Sex and Gender Information Value Date Recorded Sex Assigned at Female 08/05/2024 11:43 AM DITCHER OPERATOR Legal Sex Female 7:22 PM CDT Gender Identity Female 07/22/2024 1:16 PM DITCHER OPERATOR Sexual Orientation Not on file COVID-19 Exposure Response Date Recorded In the last 10 days, have yo u been in contact with someone who was confirmed or suspected to have Coronavirus/COVID-19? No / Unsure 07/22/2022 8:03 AM DITCHER OPERATOR documented as of this encounter Plan of Treatment Not on file documented as of this encounter Visit Diagnoses Not on filedocumented in this encounter Additional Health Concerns Assessment Noted Time PHQ-9 Depression Total Score: 10 023 1:51 PM DITCHER OPERATOR documented as of this encounter Care Teams Environmental Services Coordinator Relationship Specialty Start Date End Date Estella Dockery NP [address] [place] [phone] PCP - General Nurse Practitioner Family 09/17/20 Lindsay Wan MD [address] [place] [address] Consulting Physician ANESTHESIOLOGY PAIN MEDICINE 08/01/23 documented as of this encounter
--- OUTSIDE RECORDS SUMMARY | 2025-03-20 02:56 | XMS_ITS | Encounter Summary ---
Author Organization [facility] Address [address] [place] [address] Care Team Providers Care Branch Employment Coordinator Name Role Phone Estella Dockery NP Primary Care Provider [phone] Lindsay Wan MD Unavailable [phone] Encounter Details Date Type Department Care Team (Late st Contact Info) Description 09/25/[address] [facility] [place] [address] [id number] [employer], [facility] Provider REFERRAL Social History Tobacco Use Types [...] Sex Assigned at Female 08/05/2024 11:43 AM PATTERN PERFORATING MACHINE OPERATOR Legal Sex Female 7:22 PM CDT Gender Identity Female 07/22/2024 1:16 PM PATTERN PERFORATING MACHINE OPERATOR Sexual Orientation Not on file 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 Not on file documented as of this encounter Plan of Treatment Not on file documented as of this encounter Visit Diagnoses Not on filedocumented in this encounter Additional Health Concerns Assessment Noted Time PHQ-9 Depression Total Score: 10 024 9:50 AM PATTERN PERFORATING MACHINE OPERATOR documented as of this encounter Care Teams Branch Employment Coordinator Relationship Specialty Start Date End Date Estella Dockery, MANAGER MAINTENANCE [address] [place] [address] PCP - General Nurse Practitioner Family 09/17/20 Lindsay Wan MD [address] [place] [address] Consulting Physician ANESTHESIOLOGY PAIN MEDICINE 08/01/23 documented as of this encounter
--- OUTSIDE RECORDS SUMMARY | 2025-03-20 02:56 | XMS_ITS | Encounter Summary ---
Author Organization [facility] Address [address] [place] [address] Care Team Providers Care First Mate Name Role Phone Estella Dockery NP Primary Care Provider + Lindsay Wan MD Unavailable [phone] Encounter Details Date Type Department Care Team (Late st Contact Info) Description 01/26/2022 Science Exchange Message Enc [facility] Medical Group Family and Sports Medicine - [place] [address] [place] [address] Estella Dockery, STARCH DUMPER [address] [place] [address] Sun burn Social History Tobacco Use Types Packs/Day Years Used Date Smoking Tobacco: Never Smokeless Tobacco: Never Alcohol Use Standard Drinks/Week Comments Not Currently 0 (1 standard drink = 0.6 oz pur e alcohol) socially Comments No Sex and Gender Information Value Date Recorded Sex Assigned at Female 08/05/2024 11:43 AM BEEHIVE KILN CHARCOAL BURNER Legal Sex Female 7:22 PM CDT Gender Identity Female 07/22/2024 1:16 PM BEEHIVE KILN CHARCOAL BURNER Sexual Orientation Not on file documented as of this encounter Progress Notes * Estella Dockery NP - 01/30/2022 1:14 PM CDT Send her silvadene documented in this encounter Plan of Treatment Not on file documented as of this encounter Visit Diagnoses Not on filedocumented in this encounter Additional Health Concerns Assessment Noted Time PHQ-9 Depression Total Score: 3 02/26/20 21 9:41 AM CDT documented as of this encounter Care Teams First Mate Relationship Specialty Start Date End Date Estella Dockery NP [address] [place] [address] PCP - General Nurse Practitioner Family 09/17/20 Lindsay Wan MD [address] [facility] [address] [facility] [place] [address] Consulting Physician ANESTHESIOLOGY PAIN MEDICINE 08/01/23 documented as of this encounter
--- OUTSIDE RECORDS SUMMARY | 2025-03-20 02:56 | XMS_ITS | Encounter Summary ---
Author Organization [facility] Address [address] [place] [address] Care Team Providers Care Cellar Supervisor Name Role Phone Estella Dockery NP Primary Care Provider [phone] Lindsay Wan MD Unavailable [phone] Encounter Details Date Type Department Care Team (Late st Contact Info) Description 06/30/2024 web care [employer] Message [facility] Interventional [place] [address] [id number] [employer], [facility] Provider Pain Social History Tobacco Use Types Packs/Day [...] Sex Assigned at Female 08/05/2024 11:43 AM STRIPPING MACHINE OPERATOR Legal Sex Female 7:22 PM CDT Gender Identity Female 07/22/2024 1:16 PM STRIPPING MACHINE OPERATOR Sexual Orientation Not on file 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 Not on file Not on file documented as of this encounter Plan of Treatment Not on file documented as of this encounter Visit Diagnoses Not on filedocumented in this encounter Additional Health Concerns Assessment Noted Time PHQ-9 Depression Total Score: 10 024 9:50 AM STRIPPING MACHINE OPERATOR documented as of this encounter Care Teams Cellar Supervisor Relationship Specialty Start Date End Date Estella Dockery, TEXTILE MACHINE MAINTENANCE MECHANIC [address] [place] [address] PCP - General Nurse Practitioner Family 09/17/20 Lindsay Wan MD [address] [place] [address] Consulting Physician ANESTHESIOLOGY PAIN MEDICINE 08/01/23 documented as of this encounter
--- OUTSIDE RECORDS SUMMARY | 2025-03-20 02:56 | XMS_ITS | Encounter Summary ---
Author Organization [facility] Address [address] [place] [address] Care Team Providers Care Dean Of Boys Name Role Phone Estella Dockery DIRECTOR OF REAL ESTATE Primary Care Provider + Lindsay Wan MD Unavailable [phone] Encounter Details Date Type Department Care Team (Late st Contact Info) Description 12/08/2024 MiniTime Message Enc [facility] Medical Group Family and Sports Medicine - [place] [address] [place] [address] Estella Dockery, DIRECTOR OF REAL ESTATE [address] [place] [address] Low b12 Social History Tobacco Use Types Packs/Day Years Used Date Smoking Tobacco: Never Passive Smoke Exposure: Never Smokeless Tobacco: Never Comments:Never Smoked Alcohol Use Standard Drinks/Week Comments Yes 0 (1 standard drink = 0.6 oz pur e alcohol) socially PHQ-2 Answer Date Recorded Patient Health Questionnaire-2 Score 2 11/07/2024 Comments No Sex and Gender Information Value Date Recorded Sex Assigned at Female 08/05/2024 11:43 AM DIRECT CARE COUNSELOR Legal Sex Female 7:22 PM CDT Gender Identity Female 07/22/2024 1:16 PM DIRECT CARE COUNSELOR Sexual Orientation Not on file 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 Not on file Not on file documented as of this encounter Plan of Treatment Not on file documented as of this encounter Visit Diagnoses Not on filedocumented in this encounter Additional Health Concerns Assessment Noted Time PHQ-9 Depression Total Score: 6 11/08/19 25 3:19 PM CDT documented as of this encounter Care Teams Dean Of Boys Relationship Specialty Start Date End Date Estella Dockery NP [address] [place] [address] PCP - General Nurse Practitioner Family 09/17/20 Lindsay Wan MD Three [facility] [address] [place], [place] [id number] Consulting Physician ANESTHESIOLOGY PAIN MEDICINE 08/01/23 documented as of this encounter
--- OUTSIDE RECORDS SUMMARY | 2025-03-20 02:56 | XMS_ITS | Encounter Summary ---
Author Organization [facility] Address [address] [place] [address] Care Team Providers Care Sound Technician Supervisor Name Role Phone Estella Dockery NP Primary Care Provider [phone] Lindsay Wan MD Unavailable [phone] Encounter Details Date Type Department Care Team (Late st Contact Info) Description 08/16/2022 Better Beant Message Enc [facility] Medical Group Multispecialty Care - [facility] [address] [facility], [address] [place] [address] Jessica Duran APRN [address] [facility] [address] [place] [address] Back pain Social History Tobacco Use Types Packs/Day Years Used Date Smoking Tobacco: Never Smokeless Tobacco: Never Alcohol Use Standard Drinks/Week Comments Yes 0 (1 standard drink = 0.6 oz pur e alcohol) socially Comments No Sex and Gender Information Value Date Recorded Sex Assigned at Female 08/05/2024 11:43 AM PATIENT FINANCIAL COUNSELOR Legal Sex Female 7:22 PM CDT Gender Identity Female 07/22/2024 1:16 PM PATIENT FINANCIAL COUNSELOR Sexual Orientation Not on file COVID-19 Exposure Response Date Recorded In the last 10 days, have yo u been in contact with someone who was confirmed or suspected to have Coronavirus/COVID-19? Yes 08/18/2022 8:29 AM PATIENT FINANCIAL COUNSELOR documented as of this encounter Plan of Treatment Not on file documented as of this encounter Visit Diagnoses Not on filedocumented in this encounter Additional Health Concerns Assessment Noted Time PHQ-9 Depression Total Score: 10 023 1:51 PM PATIENT FINANCIAL COUNSELOR documented as of this encounter Care Teams Sound Technician Supervisor Relationship Specialty Start Date End Date Estella Dockery NP [address] [place] [phone] PCP - General Nurse Practitioner Family 09/17/20 Lindsay Wan MD Three [facility] [address] [place] [address] Consulting Physician ANESTHESIOLOGY PAIN MEDICINE 08/01/23 documented as of this encounter
--- OUTSIDE RECORDS SUMMARY | 2025-03-20 02:56 | XMS_ITS | Clinical Summary ---
Author Organization [facility] Address [address] [place] [address] Care Team Providers Care Commercial Escrow Assistant Name Role Phone Estella Dockery NP Primary Care Provider [phone] Lindsay Wan MD Unavailable [phone] Allergies Active Allergy Reactions Criticality Noted Date Comments Tape Rash Low 09/08/2021 Medications cetirizine 10 MG tablet Take 1 tablet (10 mg total) by mouth daily. Active traMADol (ULTRAM) 50 MG tabletIndications: Chronic Pain Take 1 tablet (50 mg total) by mouth every 6 (six) hours as needed for Pain. Indications: Chronic Pain 30 tablet 5 Active gabapentin (NEURONTIN) 300 MG capsuleIndications :Polyneuropathy Take 1 capsule (300 mg total) by mouth 4 (four) times daily. One tablet po qhs x 3 days then increase to bid for 3 days then increase to tid 120 capsule 11 5 12/06/19 26 Active HYDROcodone-acetam inophen (NORCO) 5-325 MG tabletIndications: Chronic Pain Take 1 tablet by mouth every 8 (eight) hours as needed for Pain. Indications: Chronic Pain 30 tablet 5 Active brexpiprazole (REXULTI) 0.5 MG tabletIndications: Depression with anxiety Take 1 tablet (0.5 mg total) by mouth daily. 30 tablet 1 5 Active AUVELITY 45-105 MG Tab CRIndications:Depr ession with anxiety, depression TAKE 1 TABLET BY MOUTH TWICE A DAY 60 tablet 5 Active celecoxib (CELEBREX) 100 MG capsuleIndications :Facet arthropathy, lumbar,Lumbar radiculopathy TAKE 2 CAPSULES (200 MG TOTAL) BY MOUTH DAILY FOR 30 DAYS. 60 capsule 1 5 03/04/20 25 Active Problems Problem Noted Date Diagnosed Date Depression with anxiety 11/07/2024 Lumbar radiculopathy 08/05/2024 Radial styloid tenosynovitis 07/25/2023 Facet arthropathy, lumbar 01/24/2023 depression 01/22/2020 Anxiety 09/12/2017 Mitral valve prolapse 04/14/2016 Resolved Problems Problem Noted Date Diagnosed Date Resolved Date Gestational diabetes mellitu s (GDM), antepartum, gestational diabetes method of control unspecified ([facility]) 11/04/2019 09/17/2020 Encounters Date Type Department Care Team Description 02/13/2025 MyChart Message Enc [facility] [address] [place] [address] Estella Dockery NP Antibiotics 01/07/2025 2:15 PM CDT Office Visit [facility] Physical Therapy [address] [place] [address] Dimple Babin, Deshawn Montesinos, PT Back Pain 01/07/2025 Travel 01/05/2025 8:45 AM CDT Office Visit [facility] Physical Therapy [address] [place] [address] Dimple Babin, Jessy Glez, PT Back Pain 01/05/[address] [facility] [address] [place] [address] Estella Dockery NP Mri result 01/05/2025 Travel 01/02/2025 Results Follow-Up [facility] Multispecialty Care - [facility] [address] [facility], [address] [place] [address] Cameron Hassan MD MRI PEL WWO CON 12/31/2024 11:30 AM CDT Office Visit [facility] Physical Therapy [address] [place] [address] Dimple Babin, Fany Torrez, PT Back Pain 12/31/2024 Travel 12/24/2024 5:15 PM CDT Office Visit [facility] Physical Therapy [address] [place] [address] Dimple Babin, APPAREL STOCK CHECKER Jessy Escobar, PT Initial Evaluation 12/24/2024 Travel 12/23/2024 8:16 AM CDT - 12/23/2024 11:59 PM CDT Hospital Encounter [facility] MRI [address] [place] [address] Dimple Babin, JEFFREY Discharge Disposition: Home or Self Care (Routine Discharge) 12/23/2024 Travel from Last 3 Months Immunizations Immunization Administration Dates Next Due Tdap (Adacel) 11/04/2019 Family History * Patient is adopted Medical History Relation Comments None Father None Mother Relation Status Comments Father Mother Social History Tobacco Use Types Packs/Day Years Used Date Smoking Tobacco: Never Passive Smoke Exposure: Never Smokeless Tobacco: Never Tobacco Cessation:Counseling Given: Not Answered Comments:Never Smoked Alcohol Use Standard Drinks/Week Comments Yes 0 (1 standard drink = 0.6 oz pur e alcohol) socially PHQ-2 Answer Date Recorded Patient Health Questionnaire-2 Score 2 11/07/2024 Comments No Sex and Gender Information Value Date Recorded Sex Assigned at Female 08/05/2024 11:43 AM INSTRUCTIONAL RESOURCE TEACHER Legal Sex Female 7:22 PM CDT Gender Identity Female 07/22/2024 1:16 PM INSTRUCTIONAL RESOURCE TEACHER Sexual Orientation Not on file 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 Not on file Not on file Last Filed Vital Signs Vital Sign Reading Time Taken Comments Blood Pressure 118/87 12/05/2024 8:04 AM CDT Pulse 100 12/05/2024 8:04 AM CDT Temperature 36.8 C (98.2 F) 12/05/2024 8:04 AM CDT Respiratory Rate 18 11/07/2024 1:16 PM CDT Oxygen Saturation 98% 12/05/2024 8:04 AM CDT Inhaled Oxygen Concentration - - Weight 72 kg (158 lb 12.8 oz) 12/05/2024 8:04 AM CDT Height 154.9 cm (5' 1) 12/05/2024 8:04 AM CDT Body Mass Index 30 12/05/2024 8:04 AM CDT Plan of Treatment Health Maintenance Due Date Last Done Comments Cervical Cancer Screening Pap Smear (Age 30 to 64) Every 3 Years 1988 Hepatitis B Vaccines (1 of 3 - 19+ 3-dose series) 2007 Pneumococcal Vaccine: Pediatrics (0 to 5 Years) and At-Risk Patients (6 to 49 Years) (1 of 2 - PCV) 2007 HPV Vaccines (1 - 3-dose SCDM series) 2015 Cervical Cancer Screening Pap with HPV Testing (Age 30 to 64) Every 5 Years 2018 Cervical Cancer Screening with HPV 2018 COVID-19 Vaccine ( season) 2025 Annual Physical 11/07/2025 11/07/2024, 11/2022, 09/17/2020, Additional history exists DTaP, Tdap and Td Vaccines (2 - Td or Tdap) 11/03/2029 11/04/2019 Hepatitis C Completed 07/09/2019 PHQ-2 (Physician [place]) Completed 11/07/2024 Meningococcal B Vaccine Aged Out No l onger eligible based on patient's age to complete this topic Meningococcal Vaccine Aged Out No margarita jason eligible based on patient's age to complete this topic RSV Immunizations Under 20 Months Aged Out No longer eligible based on patient's age to complete this topic Procedures Procedure Name Priority Date/Time Associated Diagnosis Comments MRI PEL WWO CON Routine 12/23/2024 9:27 AM CDT Lumbosacral plexopathy from Last 3 Months Results * MRI PEL WWO CON (12/23/2024 9:27 AM CDT) Anatomical Region Laterality Modality Pelvis Magnetic Resonan ce 01/01/2025 3:42 PM CDT Impressions 01/01/2025 3:49 PM CDT =====IMPRESSION:===== IMPRESSION: 1. No abnormalities identified involving the lumbosacral plexus. 2. Small uterine fibroid. Ordered By: DIMPLE BABIN Interpreted By: Tino Rodas MD, 01/01/2025 3:42 PM Narrative 01/01/2025 3:49 PM CDT [place] [address] EXAMINATION: MRI pelvis with and without contrast EXAM DATE/TIME: 12/23/2024 8:34 AM REASON FOR EXAM: 34 female. Lumbosacral plexopathy. Shooting burning pain across low back and hips leg weakness . COMPARISON: Reference MRI lumbar spine 04/05/2024 TECHNIQUE: Multiplanar multisequence MR imaging of the pelvis performed before and following IV administration of 14 mL Dotarem contrast. FINDINGS: Nonenlarged anteverted uterus. Endometrial endometrial stripe within normal limits. 1.5 cm anterior uterine fundal small enhancing fibroid. Both adnexa, ovaries are normal. Minimal trace free fluid in the cul-de-sac presumably physiologic. Images through the lumbar spine are normal. There is no significant disc degeneration, herniation, spinal or foraminal stenosis within study limits similar to the dedicated MRI lumbar spine study referenced above. Imaged lumbosacral plexus roots, trunks division cords and branches appear normal. Bilateral sciatic nerves are normal. No pelvic mass seen. Imaged bony structures the pelvis demonstrate normal marrow signal. No focal findings. Bilateral sacroiliac joints are unremarkable. Procedure Note Tino Rodas MD - 01/01/2025 [place] [id number] EXAMINATION: MRI pelvis with and without contrast EXAM DATE/TIME: 12/23/2024 8:34 AM REASON FOR EXAM: 34 female. Lumbosacral plexopathy. Shooting burning painacross low back and hips leg weakness . COMPARISON: Reference MRI lumbar spine 04/05/2024 TECHNIQUE: Multiplanar multisequence MR imaging of the pelvis performedbefore and following IV administration of 14 mL Dotarem contrast. FINDINGS: Nonenlarged anteverted uterus. Endometrial endometrial stripe withinnormal limits. 1.5 cm anterior uterine fundal small enhancing fibroid. Both adnexa, ovaries are normal. Minimal trace free fluid in [id number] presumably physiologic. Images through the lumbar spine are normal. There is no significant discdegeneration, herniation, spinal or foraminal stenosis within study limitssimilar to the dedicated MRI lumbar spine study referenced above. Imaged lumbosacral plexus roots, trunks division cords and branches appearnormal. Bilateral sciatic nerves are normal. No pelvic mass seen. Imaged bony structures the pelvis demonstrate normal marrow signal. Nofocal findings. Bilateral sacroiliac joints are unremarkable. =====IMPRESSION:===== IMPRESSION: 1. No abnormalities identified involving the lumbosacral plexus. 2. Small uterine fibroid. Ordered By: DIMPLE BABIN Interpreted By: Tino Rodas MD, 01/01/2025 3:42 PM Dimple Babin APPAREL STOCK CHECKER MRI Final Result from Last 3 Months Insurance Care Teams Commercial Escrow Assistant Relationship Specialty Start Date End Date Estella Dockery NP [address] [place] [address] [phone] PCP - General Nurse Practitioner Family 09/17/20 Lindsay Wan MD Three [facility] [address] [place] [address] Consulting Physician ANESTHESIOLOGY PAIN MEDICINE 08/01/23
--- OUTSIDE RECORDS SUMMARY | 2025-03-20 02:56 | XMS_ITS | Encounter Summary ---
Author Organization [facility] Address [address] [place] [address] Care Team Providers Care Staff Sonographer Name Role Phone Estella Dockery NP Primary Care Provider [phone] Lindsay Wan MD Unavailable [phone] Encounter Details Date Type Department Care Team (Late st Contact Info) Description 06/26/2024 RareCyte Message Enc [facility] Interventional Pain Management Center [place], [place] [phone] [id number] Lindsay Wan MD Three [facility] [address] [place] [address] Pain Social History Tobacco Use [...] Sex Assigned at Female 08/05/2024 11:43 AM RAIL SWITCHMAN Legal Sex Female 7:22 PM CDT Gender Identity Female 07/22/2024 1:16 PM RAIL SWITCHMAN Sexual Orientation Not on file 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 Not on file Not on file documented as of this encounter Plan of Treatment Not on file documented as of this encounter Visit Diagnoses Not on filedocumented in this encounter Additional Health Concerns Assessment Noted Time PHQ-9 Depression Total Score: 10 024 9:50 AM RAIL SWITCHMAN documented as of this encounter Care Teams Staff Sonographer Relationship Specialty Start Date End Date Estella Dockery NP [address] [place] [phone] PCP - General Nurse Practitioner Family 09/17/20 Lindsay Wan MD Three [facility] Suite [facility] [place], [place] [id number] Consulting Physician ANESTHESIOLOGY PAIN MEDICINE 08/01/23 documented as of this encounter
--- OUTSIDE RECORDS SUMMARY | 2025-03-20 02:56 | XMS_ITS | Encounter Summary ---
Author Organization [facility] Address [address] [place] [address] Care Team Providers Care Oyster Shipper Name Role Phone Estella Dockery CORRECTIONAL MEDICINE PHYSICIAN Primary Care Provider + Lindsay Wan MD Unavailable [phone] Encounter Details Date Type Department Care Team (Late st Contact Info) Description 06/10/2024 Mobile Factory Message Enc [facility] Medical Group Family and Sports Medicine - [place] [address] [place] [address] Estella Dockery, CORRECTIONAL MEDICINE PHYSICIAN [address] [place] [address] Mom in need Social History Tobacco Use Types Packs/Day Years [...] Sex Assigned at Female 08/05/2024 11:43 AM PACKAGING SALES REPRESENTATIVE Legal Sex Female 7:22 PM CDT Gender Identity Female 07/22/2024 1:16 PM PACKAGING SALES REPRESENTATIVE Sexual Orientation Not on file 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 file Not on file documented as of this encounter Plan of Treatment Not on file documented as of this encounter Visit Diagnoses Not on filedocumented in this encounter Additional Health Concerns Assessment Noted Time PHQ-9 Depression Total Score: 10 024 9:50 AM PACKAGING SALES REPRESENTATIVE documented as of this encounter Care Teams Oyster Shipper Relationship Specialty Start Date End Date Estella Dockery NP [address] [place] [address] PCP - General Nurse Practitioner Family 09/17/20 Lindsay Wan MD Three [facility] [address] [place], [place] [id number] Consulting Physician ANESTHESIOLOGY PAIN MEDICINE 08/01/23 documented as of this encounter
--- OUTSIDE RECORDS SUMMARY | 2025-03-20 02:56 | XMS_ITS | Encounter Summary ---
Author Organization [facility] Address [address] [place] [id number] Care Team Providers Care Manager Labor Delivery Name Role Phone Estella Dockery SQL ETL DEVELOPER Primary Care Provider + Lindsay Wan MD Unavailable [phone] Encounter Details Date Type Department Care Team (Late st Contact Info) Description 08/16/2022 [employer] Message Enc [facility] Family and Sports Medicine - [place] [address] [place] [address] Estella Dockery, SQL ETL DEVELOPER [address] [place] [address] Back pain question Social History Tobacco Use Types Packs/Day Years Used Date Smoking Tobacco: Never Smokeless Tobacco: Never Alcohol Use Standard Drinks/Week Comments Yes 0 (1 standard drink = 0.6 oz pur e alcohol) socially Comments No Sex and Gender Information Value Date Recorded Sex Assigned at Female 08/05/2024 11:43 AM CABLE ARMORER OPERATOR Legal Sex Female 7:22 PM CDT Gender Identity Female 07/22/2024 1:16 PM CABLE ARMORER OPERATOR Sexual Orientation Not on file COVID-19 Exposure Response Date Recorded In the last 10 days, have yo u been in contact with someone who was confirmed or suspected to have Coronavirus/COVID-19? Yes 08/18/2022 8:29 AM CABLE ARMORER OPERATOR documented as of this encounter Plan of Treatment Not on file documented as of this encounter Visit Diagnoses Not on filedocumented in this encounter Additional Health Concerns Assessment Noted Time PHQ-9 Depression Total Score: 10 023 1:51 PM CABLE ARMORER OPERATOR documented as of this encounter Care Teams Manager Labor Delivery Relationship Specialty Start Date End Date Estella Dockery NP [address] [place] [address] PCP - General Nurse Practitioner Family 09/17/20 Lindsay Wan MD [facility] [address] [place], [place] [id number] Consulting Physician ANESTHESIOLOGY PAIN MEDICINE 08/01/23 documented as of this encounter
--- NOTE | 2025-03-20 06:31 | WPDHPUPDATE1 ---
History and Physical Update Update Date/Time: 03/20/25 06:31 History and Physical has been reviewed, including an updated exam of the patient. There are NO changes in the patient's condition. Risks, benefits, and alternatives have been discussed and questions answered. Patient agrees to proceed with procedure.
--- NOTE | 2025-03-20 11:22 | P.PNAN_ITS ---
Anes - Initial Pre Proc Eval Procedure: Operation Date: 03/20/25 13:30 Proposed Procedures p Robotic Assisted Total Vaginal Hysterectomy with Bilateral Salpingectomy - Brandon Philip MD Date/Time: 03/20/25 11:22 Surgeon: Brandon Philip MD Pre Op Diagnosis: excess heavy bleeding, pelvic pain,fibroids,dyspar Patient Data Age: 34 Gender: F Height: 1.55 m Weight: 74.5 kg Allergies Allergy/AdvReac Type Severity Reaction Status Date / Time adhesive tape AdvReac Redness of Verified 03/17/25 13:22 Skin Home Medications ?Medication ?Instructions ?Recorded ?Confirmed ?Type hydrocodone 5 mg-acetaminophen 325 1 tablet PO Q4H PRN pain #30 tabs 11/13/19 0 03/17/25 Rx mg tablet ([place]) celecoxib 100 mg capsule 100 mg PO Q12H 03/17/2503/09 History cetirizine 10 mg tablet (24Hour 10 mg PO DAILY 5 03/17/25 History Allergy) cyanocobalamin (vitamin B-12) 1,000 mcg PO DAILY 03/1703/17/25 History 1,000 mcg tablet (Vitamin B-12) dextromethorphan IR 45 1 tablet PO BID 03/17/2504/02 History mg-bupropion ER 105 mg biphasic tablet (Auvelity) hydrocodone 5 mg-acetaminophen 325 1 tablet PO Q4H PRN pain #20 tabs 03/20/25 Rx mg tablet Patient hx anesthesia problems: none Family hx anesthesia problems: none Results Review: All pre-operative results and documents have been reviewed as part of the pre- operative evaluation. [facility] Past Medical History Medical History (Updated 03/20/25 @ 11:22 by Luciano Roldan DO) Uterine fibroid MVP (mitral valve prolapse) Gestational diabetes Social History Social History Smoking status: Never smoker Alcohol intake: current Substance use: never Living arrangements: with family Gender identity (if verbalized by the patient): Female Spiritual care concerns: No Anes - Eval Final PreProcedure Day of Procedure 03/20/25 11:22 Patient weight: obese Heart: regular rate and rhythm Lungs: clear to auscultation Airway: Mallampati scale class II Neurological: alert and oriented Last oral intake: >/= 8 hours ASA classification: II Emergent: no Anesthetic plan: proceed Anesthesia type and monitoring: general ETT and standard monitoring Results Review: All pre-operative results and documents have been reviewed as part of the pre- operative evaluation. Informed Consent: The patient's anesthetic plan and its attendant risks and benefits were discussed with the patient/family/POA. Questions were solicited and answers provided to the satisfaction of the patient/family/POA.
[2025-03-20] MEDS: LACTATED RINGERS 1,000 ML 30 ML IV CONT ×2 (12:00→13:59)
[2025-03-20] MEDS: KETOROLAC 15 MG/ML VIAL (*BKC) IV PUSH (12:00)
[2025-03-20] MEDS: ceFAZolin 2 GM in SODIUM CHLORIDE 0.9% IV 50 ML 100 ML IVPB (12:20)
[2025-03-20] MEDS: SCOPOLAMINE 1 MG PATCH 1 PATCH TRANSDERM (12:24)
[2025-03-20] MEDS: ACETAMINOPHEN 500 MG TABLET 1000 MG PO ×3 (12:24→23:00)
--- NOTE | 2025-03-20 13:20 | S_PTH ---
PATIENT: Saritha Gilliam LOC: [facility] U#:[id number] AGE/SX: 34/F ROOM: RE03/20/[address]: Brandon Philip MD : 1990 BED: DIS: 03/21/2025 SPEC #: [id number] RECD: 03/20/25 14:19 STATUS: RE REQ #: [id number] PAOLO: 03/20/25 13:[address]: Brandon Hutton DEPT: [facility] Surgical RECD BY: Prachi Corea ENTERED: 03/20/25 14:19 SP TYPE: Surgical OTHR DR: Estella Dockery, SQL REPORT DEVELOPER Tissues: A - Uterus Procedures: Hematoxylin and Eosin Stain Gross and Microscopic Level 5
--- NOTE | 2025-03-20 13:43 | P.OP_ITS ---
Procedure Note - Detailed Date of Procedure 03/20/25 Pre-op Diagnosis excess heavy bleeding, pelvic pain,fibroids,dyspar Post-op Diagnosis Same Procedure Performed Robotic total vaginal hysterectomy bilateral salpingectomy Surgeon Brandon Philip MD Anesthesia General Indications 34-year-old female with enlarged uterus with successive heavy bleeding pain Findings Uterus enlarged/tubes within limits/small left ovarian cyst was drained follicular fluid. Description of Procedure The patient was prepped draped in the normal sterile fashion placed in the dorsal lithotomy position. Under excellent general trach anesthesia weighted speculum placed in posterior fornix vagina. Anterior lip of cervix grasped with single-tooth tenaculum. Uterus sounded to 10cm. Serial dilatation with fragmented dilators performed followed by passage of the 10. JEB and the 2. 0.5 cold cup. Next the 16 Bhutanese catheter was placed in the bladder. The single- tooth and the weighted speculum removed. The gloves were changed. A supraumbilical incision made the Veress needle passed in the abdomen. Abdomen filled with CO2 gas [id number]. The 8mm trocar advanced in the abdomen. Downside visualized no injury seen. Patient placed in Trendelenburg left and right lateral quadrant incision made. 8mm trocars advanced under direct visualization assuring no injury. Right upper quadrant incision made the 8mm trocar advanced under direct visualization assuring no injury. The robot was docked. Attention was turned to the console. The left round ligament was grasped, burned, cut. Anterior bladder flap was formed by sharply dissecting the peritoneum and tissue. The uterus was noted to have the bladder writing somewhat high so this was down layer by layer until it was completely clear and then pushed caudally away from the cervix uterus the opposite round ligament which was clamped, burned, cut. Next the left fallopian tube was skeletonized away from the cyst left ovary. This was sharply dissected and left attached to its uterine origin. In similar fashion the right fallopian tube was sharply dissected away from the ovarian complex and left at its uterine origin. Next the left utero-ovarian ligament was skeletonized to conserve the left ovary clamped, burned, cut and brought to the level of previously cut round ligament. In similar fashion conserving the ovary on the right. The utero-ovarian ligament was clamped, burned, cut and brought to level of previously cut round ligament. Next cardinal broad ligaments were serially clamped burned and cut hugging the cervix uterus until the uterine vessels could be seen on the left these were individually clamped, burned, cut. These were noted be large and tortuous. In similar fashion on the right the cardinal broad ligaments were serially skeletonized clamping burning cutting and bringing this down the lateral edge until the large uterine vessels were seen on the right these were individually clamped, burned, cut. Blanching the uterus was noted a colpotomy incision made. Cervix uterus and tubes removed through the vagina. The vagina then closed with continuous running 0V lock from lateral edge to lateral edge back to the midline. Irrigation undertaken and Finley term placed over raw surface areas blood loss estimated 25cc. The robot was undocked. The gas removed from the abdomen. The incisions closed with 4 Monocryl and glue. The patient went recovery in satisfactory condition. All sponge, needle, instrument counts were correct. There were no immediate complications noted Estimated Blood Loss 25 Drains No Packing No Pathology Yes Complications No immediate complications Condition Stable Disposition PACU
--- NOTE | 2025-03-20 13:48 | PM.DS ---
DS: Admitting Diagnosis Discharge Date 03/21/2025 Admitting Diagnosis Uterine fibroid DS: Discharge Diagnosis Discharge Diagnosis (1) Uterine fibroid: Code(s): D25.9 - Leiomyoma of uterus, unspecified Status: Acute DS: Summary Hospital Course Reason for hospitalization: Patient was admitted on 03/20/2025 for robotic total vaginal hysterectomy and bilateral salpingectomy Hospital Course: Paste hospital course unremarkable. She remained afebrile. She was up, voiding without difficulty, eating regular diet, ambulating, and generally without complaints. Time Spent with Patient Time attestation: Total time spent providing and/or coordinating discharge services: Exam Const: General: cooperative, healthy appearing and comfortable Nutritional Appearance: average body habitus Orientation/consciousness: oriented to person, oriented to place and oriented to time HENMT: Head: normal to inspection Resp: Effort & Inspection: normal respiratory effort Cardio: Rate: regular rate Rhythm: regular rhythm Heart sounds: S1 normal heart sound present and S2 normal heart sound present GI: Inspection: normal to inspection and incision (Wounds are clean dry and intact) DS: Data Data Completed and Pending Pending studies at discharge: Pending at discharge 03/20/25 13:20 Surgical [PTH] Routine Discharge Plan Discharge Patient Disposition: Home Patient Language: [place] Islander Stand Alone Forms: General Discharge Instructions Follow-up/Referrals: Brandon Hutton MD [Physician, ACUPUNCTURE PHYSICIAN] Discharge Medications: New hydrocodone-acetaminophen 5-325 mg tablet 1 tablet PO Q4H PRN (Reason: pain) Qty: 20 0RF No Action hydrocodone-acetaminophen [Chase] 5-325 mg tablet 1 tablet PO Q4H PRN (Reason: pain) Qty: 30 0RF Auvelity 45-105 mg tablet, IR and ER, biphasic 1 tablet PO BID Rx Instructions: administer at least 8 hours apart cetirizine [24Hour Allergy] 10 mg tablet 10 mg PO DAILY celecoxib 100 mg capsule 100 mg PO Q12H cyanocobalamin (vitamin B-12) [Vitamin B-12] 1,000 mcg tablet 1,000 mcg PO DAILY
[2025-03-20] MEDS: ALBUTEROL SULFATE NEB 2.5 MG/3 ML INH INHALATION (14:30)
[2025-03-20] MEDS: fentaNYL CITRATE INJ (*CRX) 100 MCG/2 ML VIAL 25 MCG IV PUSH (15:10)
[2025-03-20] MEDS: DOCUSATE SODIUM 100 MG CAPSULE PO (16:12)
[2025-03-20] MEDS: SIMETHICONE 80 MG TAB.CHEW PO (16:12)
[2025-03-20] MEDS: KETOROLAC 30 MG/ML VIAL (*BKC) IV PUSH ×2 (16:12→23:00)
[2025-03-20] MEDS: DEXTROSE 5%/LACTATED RINGERS 1,000 ML 125 ML IV CONT (16:19)
[2025-03-21 04:13] VITALS: BP 91/57; PULSE 92; RESP 16; TEMP 36.5; O2SAT 96
[2025-03-21] MEDS: ACETAMINOPHEN 500 MG TABLET 1000 MG PO (04:15)
[2025-03-21] MEDS: KETOROLAC 30 MG/ML VIAL (*BKC) IV PUSH (04:15)
[2025-03-21 05:09] LABS: Hematocrit 36.3 % (37.0-47.0); Hemoglobin 12.2 g/dL (12.0-15.0); Immature Granulocyte Percent A 0.6 % (0-0.5); Lymphocytes Absolute Auto 1.09 K/mm3 (0.9-3.2); Mean Corpuscular HGB Conc 33.6 g/dl (32-36); Mean Corpuscular Hemoglobin 31.7 pg (26-34); Mean Corpuscular Volume 94.3 fl (80-100); Nucleated Red Blood Cells Absolute Auto 0.000 K/mm3 (0.0-0.012); Nucleated Red Blood Cells Perc 0.0 % (0.0-0.2); Platelet Count Result 299 k/mm3 (150-375); Red Blood Count 3.85 M/mm3 (4.2-5.4); White Blood Count 17.1 K/mm3 (4.5-10.0)
--- NOTE | 2025-03-21 07:07 | P.PNOB_ITS ---
REAL TIME ANALYST - A/P Assessment and plan (1) Uterine fibroid: Code(s): D25.9 - Leiomyoma of uterus, unspecified Status: Acute Plan home Postoperative Procedures: Procedures Operation Date: 03/20/25 13:30 Actual Procedure Side Surgeon p Robotic Assisted Total Vaginal Hysterectomy with Bilateral Salpingectomy, Destruction of Left Ovarian Cyst Bilateral Brandon Philip MD Time Spent With Patient Time: Total time spent is greater than 50% in coordination of care (as documented) at patient's floor/unit and/or counseling patient: Time with patient: less than 15 minutes REAL TIME ANALYST- PN:Subj Post-Op Subjective Date/time seen: 03/21/25 07:07 Subjective: patient reports feeling better, patient has no complaints, patient desires discharge, pain is well controlled and patient is tolerating oral intake Review of Systems 2 Review of Systems: All systems reviewed & are unremarkable except as noted in HPI and below Exam 2 Const: General: cooperative, healthy appearing and comfortable Nutritional Appearance: average body habitus Orientation/consciousness: oriented to person, oriented to place and oriented to time HENMT: Head: normal to inspection Resp: Effort & Inspection: normal respiratory effort Cardio: Rate: regular rate Rhythm: regular rhythm Heart sounds: S1 normal heart sound present and S2 normal heart sound present GI: Inspection: normal to inspection and incision (Wounds are clean dry and intact) REAL TIME ANALYST - PN: Obj Data Vital Signs Vital Signs: Vital Signs - 24 hr 03/20/25 12:00 03/20/25 13:59 03/20/25 14:15 Temperature 98.3 F 98.4 F Pulse Rate 94 80 95 Respiratory Rate 16 14 18 Blood Pressure 124/77 79/44 L 94/62 L Pulse Oximetry 99 96 97 Oxygen Delivery Room Air Simple Face Mask Simple Face Mask Oxygen Flow Rate 8 8 03/20/25 14:30 03/20/25 14:45 03/20/25 14:45 Temperature Pulse Rate 99 96 88 Respiratory Rate 12 16 20 Blood Pressure 97/59 L 95/63 L Pulse Oximetry 92 100 Oxygen Delivery Nasal Cannula Nasal Cannula Oxygen Flow Rate 6 2 03/20/25 14:55 03/20/25 15:00 03/20/25 15:15 Temperature Pulse Rate 90 95 97 Respiratory Rate 18 16 14 Blood Pressure 109/80 106/72 Pulse Oximetry 97 92 Oxygen Delivery Nasal Cannula Nasal Cannula Oxygen Flow Rate 2 2 03/20/25 15:30 09/12/25 15:50 03/20/25 15:50 Temperature 98.1 F 98.1 F Pulse Rate 100 80 80 Respiratory Rate 16 16 16 Blood Pressure 103/70 104/69 104/69 Pulse Oximetry 97 97 97 Oxygen Delivery Nasal Cannula Oxygen Flow Rate 4 03/20/25 19:10 03/20/25 19:10 03/20/25 23:11 Temperature 97.7 F 97.8 F Pulse Rate 105 H 93 Respiratory Rate 20 20 Blood Pressure 101/66 91/59 L Pulse Oximetry 96 95 Oxygen Delivery Room Air Oxygen Flow Rate 03/20/25 23:11 03/21/25 04:13 03/21/25 04:13 Temperature 97.7 F Pulse Rate 92 Respiratory Rate 16 Blood Pressure 91/57 L Pulse Oximetry 96 Oxygen Delivery Room Air Room Air Oxygen Flow Rate Intake/Output Intake/Output: Intake & Output 03/18/25 03/19/25 03/20/25 03/21/25 23:59 23:59 23:59 23:59 Intake Total 750 Output Total 1390 500 Balance -640 -500 Meds/Results Medications: Active Medications Generic Name Dose Route Start Last Admin Trade Name Freq PRN Reason Stop Dose Admin Acetaminophen 1,000 mg 03/20/25 18:00 03/21/25 04:15 Acetaminophen 500 Mg Tablet PO 1,000 mg Q6HR LUISA Administration Docusate Sodium 100 mg 03/20/25 17:00 03/20/25 16:12 Docusate Sodium 100 Mg Capsule PO 100 mg BID LUISA Administration Enoxaparin Sodium 40 mg 03/21/25 09:00 Enoxaparin 40 Mg/0.4 Ml Syringe SUB-Q DAILY [facility] Dextrose/Lactated Ringer's 1,000 mls @ 125 mls/hr 03/20/25 15:35 03/21/25 04:16 Dextrose 5%/Lactated Ringers IV CONT Not Given .Q8H LUISA Ibuprofen 600 mg 03/21/25 12:00 Ibuprofen 600 Mg Tablet PO Q6HR LUISA Naloxone HCl 0.1 mg 03/20/25 15:35 Naloxone Hcl 0.4 Mg/Ml Vial IV PUSH Q2M PRN Respiratory rate less than 10 Ondansetron HCl 4 mg 03/20/25 15:35 Ondansetron Inj 4 Mg/2 Ml Vial IV PUSH Q6H PRN Nausea And Vomiting Oxycodone HCl 5 mg 03/20/25 15:35 Oxycodone Hcl (*Crx) 5 Mg Tab Ir PO Q4H PRN Pain Rated 4-6 Oxycodone HCl 10 mg 03/20/25 15:35 Oxycodone Hcl (*Crx) 5 Mg Tab Ir PO Q6H PRN Pain Rated 7-10 Simethicone 80 mg 03/20/25 17:00 03/20/25 16:12 Simethicone 80 Mg Tab.Chew PO 80 mg TIDWM LUISA Administration Radiology Results: ITS Impressions Chest X-Ray 03/20/25 15:28 IMPRESSION: 1: NO ACUTE CARDIOPULMONARY DISEASE. Labs 03/21/25 04:04 Labs: Laboratory Results - last 24 hr 03/21/25 04:04 WBC 17.1 H RBC 3.85 L Hgb 12.2 Hct 36.3 L MCV 94.3 MCH 31.7 MCHC 33.6 RDW 12.5 Plt Count 299 MPV 10.5 H Immature Gran % (Auto) 0.6 H Neut % (Auto) 89.0 H Lymph % (Auto) 6.4 L Robertson % (Auto) 3.8 Eos % (Auto) 0.0 Baso % (Auto) 0.2 Lymph # (Auto) 1.09 Robertson # (Auto) 0.7 H Eos # (Auto) 0.0 Baso # (Auto) 0.0 Abs Immat Gran (auto) 0.11 H Absolute Neuts (auto) 15.3 H Absolute Nucleated RBC 0.000 Nucleated RBC % 0.0
[2025-03-21 07:42] VITALS: BP 82/49; PULSE 76; RESP 14; TEMP 36.8; O2SAT 95
[2025-03-21] MEDS: DOCUSATE SODIUM 100 MG CAPSULE PO (08:32)
[2025-03-21] MEDS: ENOXAPARIN 40 MG/0.4 ML SYRINGE SUB-Q (08:32)
[2025-03-21] MEDS: SIMETHICONE 80 MG TAB.CHEW PO (08:32)
== END 2025-03-21 11:30 | disposition home or self-care (01) ==
LOC: ANHSURGERY 11:24 → ANHOB2 15:46
PROVIDERS: PCP Nurse Practitioner Family; Visit Provider Obstetrics & Gynecology
PROC: (CPT 58662; principal; 2025-03-20 13:30)
DX: N93.9 Abnormal uterine and vaginal bleeding, unspecified (principal); N84.0 Polyp of corpus uteri; D25.9 Leiomyoma of uterus, unspecified; R10.2 Pelvic and perineal pain; N94.10 Unspecified dyspareunia; N83.202 Unspecified ovarian cyst, left side; E66.9 Obesity, unspecified; Z68.30 Body mass index [BMI] 30.0-30.9, adult
CPT/HCPCS: 58662; 58552; S2900; 36415; 71045; 85025; 86850; 86900; 86901; 88307; 94640; 99199; J0690; A9270; J1100; J1171; J1650; J1885; J2003; J2250; J2371; J2405; J2704; J3010; J7030; J7120; J7121